=== PATIENT | female | born 1970 | race Caucasian/White ===

== ENCOUNTER 2023-07-05 03:58 | Day surgery (SDC) | payer OTHER ==
[2023-07-04 09:21] VITALS: BMI 25.9
[2023-07-05] MEDS ORDERED: FENTANYL CITRATE/PF 50 MCG/ML VIAL ONE (08:59)
[2023-07-05] MEDS ORDERED: MIDAZOLAM HCL 2 MG/2 ML SINGLE DOSE VIAL ONE (08:59)
[2023-07-05] MEDS ORDERED: PROPOFOL 20 ML ONE (09:00)
[2023-07-05] MEDS ORDERED: PROPOFOL 40 ML ONE (09:00)
[2023-07-05] MEDS ORDERED: ONDANSETRON 4 MG/2 ML VIAL IVPUSH PRN (09:54)
[2023-07-05] MEDS ORDERED: LACTATED RINGERS SOLUTION 1,000 ML IV SCH (10:00)
[2023-07-05 10:25] VITALS: RESP 18
[2023-07-05 11:25] VITALS: BP 125/79; PULSE 60; TEMP 97.2
== END 2023-07-05 12:45 | disposition home or self-care (01) ==
LOC: JASU-SURG 03:58
PROVIDERS: ATTEND Obstetrics & Gynecology
PROC: 0UB98ZZ Excision of Uterus, Via Natural or Artificial Opening Endoscopic (ICD-10-PCS; principal; 2023-07-05 09:00)
DX: N95.0 Postmenopausal bleeding (principal); D25.0 Submucous leiomyoma of uterus; N84.0 Polyp of corpus uteri
CPT/HCPCS: 81025; 86850; 86900; 86901; 88342-TC; 94760